=== PATIENT | female | born 1955 | race Caucasian/White ===

== ENCOUNTER 2016-07-16 21:22 | Observation (INO) | payer BC ==
[~2016-07-16 21:22] MED LIST: ESTR0.5T9 PO; FESO4 PO; FEXO180 PO; LORTA5 PO; OMPR20CCR PO; PRED10 PO; SIMV5TAB3 PO
[2016-07-16 21:24] VITALS: BP 132/68; PULSE 85; RESP 20; TEMP 98.3; O2SAT 97
--- NOTE | 2016-07-16 21:37 | PD ---
HPI Chief Complaint: Chest Pain Time Seen by Provider: 21:34 Travel History International Travel<30 days: No Contact w/Intl Traveler<30days: No Traveled to known affect area: No History of Present Illness HPI This is a 60-year-old female who has a history of microscopic polyangiitis who presents to the emergency department having been walking up her stairs when she started to have severe pain in the epigastric region, constant, bringing her to her knees. Her was there and says that she got flushed and diaphoretic. She says she felt short of breath. The chest pain lasted for about 20 minutes at its maximum and then another 20 minutes it was more mild. EMS arrived and administered 162 of aspirin. With EMS her symptoms had subsided. She's never had chest pain like this before. Her last stress test was in February and she was told it might be abnormal but they chose not to do a catheterization or any other intervention. Her billboard poster is in [place]. She is not currently on any medication for her microscopic polyangiitis but in the past she's been on prednisone. She does have a history of hyperlipidemia. She has had a cholecystectomy. PFSH Past Medical History Cancer: No High Cholesterol: Yes Diminished Hearing: No Endocrine: No Genitourinary: No Immune Disorder: No Implanted Vascular Access Dvce: Yes Musculoskeletal: No Neurologic: No Psychiatric: No Reproductive: No Respiratory: Yes (PNEUMONIA/BRONCHITIS) Menopausal: No Past Surgical History Oral Surgery: Yes (TONSILLECTOMY. MANDIBLE REPAIR) Pacemaker: No Tonsillectomy: Yes Other Surgery: Yes (LOWER MANDIBLE) Social History Alcohol Use: Yes (OCCAS) Tobacco Use: No Substance Use: No Allergies-Medications (Allergen,Severity, Reaction): Coded Allergies: No Known Allergies (Unverified , 07/16/16) Reported Meds & Prescriptions Reported Meds & Active Scripts Active Reported Lortab 5/325 Tab (Hydrocodone-Acetaminophen) 1 Tab Tab 1 Tab PO TIDPRN [Feso4] 325 Mg PO TID Prilosec 20 Mg Cap (Omeprazole) 20 Mg Capcr 20 Mg PO DAILY Deltasone 10 Mg Tab (Prednisone) 10 Mg Tab 80 Mg PO DAILY Simvastatin 5 Mg Tab 5 Mg PO DAILY Estrace (Estradiol) 0.5 Mg Tab 0.5 Mg PO WEEKLY TWICE A WEEK Chelsey (Fexofenadine HCl) 180 Mg Tab 180 Mg PO DAILY Review of Systems Except as stated in HPI: all other systems reviewed are Neg Physical Exam Narrative GENERAL:Well appearing, no acute distress SKIN: Warm and dry. HEAD: Atraumatic. Normocephalic. EYES: Pupils equal and round. No injection or drainage. ENT: Moist mucous membranes NECK: Trachea midline. CARDIOVASCULAR: Regular rate and rhythm. No murmur appreciated. RESPIRATORY: Clear to auscultation. Breath sounds equal bilaterally. GASTROINTESTINAL: Abdomen soft, tender to palpation in the epigastrium and right upper quadrant with no rebound or guarding. MUSCULOSKELETAL: No obvious deformities. NEUROLOGICAL: Awake and alert. No obvious cranial nerve deficits. Moving all extremities. PSYCHIATRIC: Appropriate mood and affect; insight and judgment normal. Data Data Last Documented VS Vital Signs Date Time Temp Pulse Resp B/P Pulse Ox O2 Delivery O2 Flow Rate FiO2 07/16/16 21:28 Room Air 07/16/16 21:24 98.3 85 20 132/68 97 Orders Electrocardiogram (07/16/16 21:34) Complete Blood Count With Diff (07/16/16 21:34) Comprehensive Metabolic Panel (07/16/16 21:34) Prothrombin Time / Inr (Pt) (07/16/16 21:34) Act Partial Throm Time (Ptt) (07/16/16 21:34) Troponin I (07/16/16 21:34) Chest, Single Ap (07/16/16 21:34) Ecg Monitoring (07/16/16 21:34) Bilateral Bp Monitoring (07/16/16 21:34) Iv Access Insert/Monitor (07/16/16 21:34) Oximetry (07/16/16 21:34) Oxygen Administration (07/16/16 21:34) Sodium Chloride 0.9% Flush (Ns Flush) (07/16/16 21:45) Labs Laboratory Tests Test 07/16/16 21:40 White Blood Count 9.0 TH/MM3 Red Blood Count 4.64 MIL/MM3 Hemoglobin 14.4 GM/DL Hematocrit 41.3 % Mean Corpuscular Volume 89.0 FL Mean Corpuscular Hemoglobin 30.9 PG Mean Corpuscular Hemoglobin 34.8 % Concent Red Cell Distribution Width 13.9 % Platelet Count 237 TH/MM3 Mean Platelet Volume 8.2 FL Neutrophils (%) (Auto) 69.4 % Lymphocytes (%) (Auto) 15.3 % Monocytes (%) (Auto) 4.8 % Eosinophils (%) (Auto) 9.8 % Basophils (%) (Auto) 0.7 % Neutrophils # (Auto) 6.2 TH/MM3 Lymphocytes # (Auto) 1.4 TH/MM3 Monocytes # (Auto) 0.4 TH/MM3 Eosinophils # (Auto) 0.9 TH/MM3 Basophils # (Auto) 0.1 TH/MM3 CBC Comment DIFF FINAL Differential Comment Prothrombin Time 10.5 SEC Prothromb Time International 1.0 RATIO Ratio Activated Partial 21.5 SEC Thromboplast Time Sodium Level 141 MEQ/L Potassium Level 4.7 MEQ/L Chloride Level 109 MEQ/L Carbon Dioxide Level 24.8 MEQ/L Anion Gap 7 MEQ/L Blood Urea Nitrogen 13 MG/DL Creatinine 1.12 MG/DL Estimat Glomerular Filtration 50 ML/MIN Rate Random Glucose 157 MG/DL Calcium Level 8.3 MG/DL Total Bilirubin 0.3 MG/DL Aspartate Amino Transf 57 U/L (AST/SGOT) Alanine Aminotransferase 30 U/L (ALT/SGPT) Alkaline Phosphatase 88 U/L Troponin I LESS THAN 0.02 NG/ML Total Protein 6.9 GM/DL Albumin 3.2 GM/DL [facility] Medical Decision Making Medical Screen Exam Complete: Yes Emergency Medical Condition: Yes Interpretation(s) Afebrile, no tachycardia, normotensive EKG: Normal sinus rhythm with no ST changes. No leukocytosis Mild renal insufficiency with a GFR of 50 troponin is normal Last 24 hours Impressions Chest X-Ray 07/16/162133 Signed Impressions: Service Date/Time: June 21:57 - CONCLUSION: No acute disease Hank Ocasio MD Differential Diagnosis Acute coronary syndrome, pneumonia, pleural effusion, renal failure, cholecystitis, gastritis, peptic ulcer disease Narrative Course This is a 60-year-old female who presents to the emergency department with a discrete episode of epigastric discomfort associated with diaphoresis, nausea and shortness of breath. Her history is concerning for acute coronary syndrome. EKG is reassuring and initial troponin is negative. Patient does have a history of microscopic polyangiitis. Chest x-ray is reassuring as well as labs. She did have an abnormal stress test at home in [place]. It's unclear what the abnormality was. I think it's reasonable to place the patient in observation for serial cardiac enzymes and cardiology consultation. I considered a GI etiology of her symptoms and she may very well have gastritis or an ulcer which can be worked up further as an outpatient. She did have a cholecystectomy in the past. Diagnosis Primary Impression: Chest pain Qualified Code: R07.89 - Other chest pain Admitting Information Admitting Physician Requests: Observation Marleny Live MD Jul 16, 2016 21:37
[2016-07-16] MEDS ORDERED: SODIUM CHLORIDE 0.9% FLUSH 5 ML FLUSH IVF PRN ×2 (21:45→23:45)
[2016-07-16 22:00] VITALS: BP 122/70; PULSE 80; RESP 18; O2SAT 97
[2016-07-16 22:01] LABS: AUTOMATED NEUTROPHIL # 6.2 TH/MM3 (1.8-7.7); BASOPHIL # 0.1 TH/MM3 (0-0.2); BASOPHIL % 0.7 % (0.0-2.0); EOSINOPHIL # 0.9 TH/MM3 (0-0.4); EOSINOPHIL % 9.8 % (0.0-4.0); HEMATOCRIT 41.3 % (35.0-46.0); HEMO FLAGS DIFF FINAL; LYMPH % 15.3 % (9.0-44.0); LYMPHOCYTE # 1.4 TH/MM3 (1.0-4.8); MEAN CORPUSCULAR HEMOGLOBIN 30.9 PG (27.0-34.0); MEAN CORPUSCULAR HGB CONC 34.8 % (32.0-36.0); MONO % 4.8 % (0.0-8.0); NEUT % 69.4 % (16.0-70.0); PLATELET COUNT 237 TH/MM3 (150-450); RED BLOOD COUNT 4.64 MIL/MM3 (4.00-5.30); RED CELL DISTRIBUTION WIDTH 13.9 % (11.6-17.2)
[2016-07-16 22:14] LABS: APTT (PATIENT) 21.5 SEC (24.3-30.1); PROTHROMBIN TIME - PATIENT 10.5 SEC (9.8-11.6)
--- NOTE | 2016-07-16 22:15 | RADRPT ---
EXAM DATE/TIME: 07/16/2016 21:57 [facility] COMPARISON: CHEST SINGLE AP, March 28, 2012, 6:13. INDICATIONS : Chest pain. MEDICAL HISTORY : Hypertension. SURGICAL HISTORY : None. ENCOUNTER: Initial ACUITY: 1 day PAIN SCORE: 10/10 LOCATION: chest FINDINGS: There appears to be a suture line overlying the lateral right lower chest. There is no evidence of in filtrate or effusion. Cardiomediastinal contours are satisfactory. CONCLUSION: No acute disease Hank Ocasio MD on July 16, 2016 at 22:13 Board Certified Radiologist. This report was verified electronically.
[2016-07-16 22:27] LABS: ALKALINE PHOSPHATASE 88 U/L (45-117); ALT (GPT) 30 U/L (10-53); ANION GAP 7 MEQ/L (5-15); AST (GOT) 57 U/L (15-37); BICARBONATE 24.8 MEQ/L (21.0-32.0); BLOOD UREA NITROGEN 13 MG/DL (7-18); CHLORIDE 109 MEQ/L (98-107); GLOMERULAR FILTRATION RATE 50 ML/MIN (>89); SODIUM (NA) 141 MEQ/L (136-145); TOTAL BILIRUBIN ADULT 0.3 MG/DL (0.2-1.0)
[2016-07-16 22:40] LABS: POTASSIUM 4.7 MEQ/L (3.5-5.1)
[2016-07-16 23:00] VITALS: BP 115/59; PULSE 78; RESP 18; O2SAT 96
[2016-07-17] VITALS: BP 120/63; PULSE 69; RESP 18; O2SAT 96
[2016-07-17 03:37] VITALS: BP 117/66; PULSE 76; RESP 18; TEMP 98.2; O2SAT 91; O2SAT 96
--- NOTE | 2016-07-17 08:54 | TR ---
Date Performed: 07/17/2016 Time Performed: 08:12:22 DOCTOR: Delta Atkinson DRUG LIST: CLINICAL HISTORY: REASON FOR TEST: REASON FOR ENDING: OBSERVATION: CONCLUSION: ZURI PROTOCOL. DEVELOPED TIGHTNESS 3/10 IN SECOND STAGE. IMPROVED IN RECOVERY. 1/1 0 AT 2 MINUTES IN RECOVERY. PT WAS SOB. TIGHTNESS RESOLEVED 2 1/2 MINUTES INTO RECOVERY.Maximum HR= 135 % Max HR Achieved=84.0% Maximum CI=721/70 Total Exercise Time=3:50 COMMENTS: ST changes inferiorly consistent with ischemia
[2016-07-17] MEDS ORDERED: SODIUM CHLORIDE 0.9% FLUSH 5 ML FLUSH IVF SCH (09:00)
[2016-07-17] MEDS ORDERED: NITROGLYCERIN 2% OINT 1 GM PACKET TOPICAL SCH (09:15)
[2016-07-17] MEDS ORDERED: PANTOPRAZOLE SOD 40 MG DELAYED RELEASE TAB PO SCH (09:30)
[2016-07-17] MEDS ORDERED: METOPROLOL TARTRATE 25 MG TAB PO SCH (09:30)
[2016-07-17] MEDS ORDERED: SODIUM CHLOR 0.9% 1000 ML INJ 1,000 ML IV SCH (09:30)
[2016-07-17] MEDS ORDERED: ASPIRIN 325 MG TAB PO SCH (09:30)
[2016-07-17] MEDS ORDERED: PILL SPLITTER OTHER PRN (09:30)
--- NOTE | 2016-07-17 10:28 | MH ---
cc: LARRY HOWELL MD DATE OF ADMISSION: 07/16/2016 DATE OF 1955 CHIEF COMPLAINT Chest pain HISTORY OF PRESENT ILLNESS This is a 60-year-old female who presents to the ED with a complaint of discomfort in her chest. She states that she notes a severe discomfort in the center of her chest that has also produced diaphoresis and nausea. She called 9-1-1 and was given sublingual nitroglycerin which did help her symptoms. It lasted about 20-minute she believes. She then states that she has had this occasionally over the last few months. She states that if she walks upstairs or just walks to fast, she will get the discomfort, but if she stops what she is doing, it will go away within a few minutes. She states she had it evaluated in [place] where she resides most of the time and had a nuclear ETT that was apparently nonischemic. She denies any recent illnesses. Denies fevers or chills. The patient states she also has a history of microscopic polyangiitis, but does not believe the symptoms have recurred. PAST HISTORY 1. Hyperlipidemia 2. Microscopic polyangiitis. 3. Denies hypertension, diabetes and known CAD. FAMILY HISTORY Her mother had CAD. She had her first MD in her 60s and she also had a bypass. PAST SURGICAL HISTORY Tonsillectomy and mandibular repair. SOCIAL HISTORY The patient does not smoke or use illicit drugs. She has occasional alcohol. ALLERGIES NO KNOWN DRUG ALLERGIES. MEDICATIONS Include: 1. Simvastatin 5 mg daily 2. Estrace twice a week REVIEW OF SYSTEMS GENERAL: Denies fevers or chills. Denies recent illnesses. HEENT: Denies headache, earache, sore throat or difficulty swallowing. CARDIOVASCULAR: Describes the discomfort as mentioned above. There is diaphoresis. Denies sensation of heart beating rapidly or irregularly. No syncope. RESPIRATORY: She was short of breath. No inspirational chest discomfort. Denies coughing, wheezing or hemoptysis. GI: She was nauseous, but denies emesis. Denies abdominal pain. Denies diarrhea, constipation or blood in the stool. MUSCULOSKELETAL: Denies joint pain or edema. Denies calf pain or edema. NEUROVASCULAR: Denies headache or dizziness. ENDOCRINE: Denies polyuria or polydipsia. HEMATOLOGIC: Denies easy bruising. SKIN: Denies rash or itching. PHYSICAL EXAMINATION VITAL SIGNS: In the emergency department initially included a blood pressure of 132/68, heart rate is 85, respirations 20, pulse oximetry 97% on two liters nasal cannula and she was afebrile. Most recent vital signs include a blood pressure 117/66, heart 76, respirations 18, pulse oximetry 96% on room air and she was afebrile. GENERAL: The patient seen in the examination room in no apparent stress. She is very pleasant. She speaks in clear and complete sentences. HEENT: Head is atraumatic, normocephalic. NECK: Supple without lymphadenopathy and trachea is midline. No JVD or carotid bruits. CARDIOVASCULAR: Regular rate and rhythm without murmur, gallop or rub. RESPIRATORY: Lungs are clear to auscultation bilaterally. No wheezing, rales or rhonchi. There is no reproducible chest wall discomfort. No use of accessory muscles. GI: Abdomen is nontender. Bowel sounds normal. MUSCULOSKELETAL: The patient is moving upper and lower extremities freely. No joint tenderness or edema. No calf tenderness or Homans' sign. Strong pulses in the upper and lower extremity. NEUROVASCULAR: The patient is alert and oriented. Cranial nerves II-XII grossly intact. No focal deficits and speech is clear. SKIN: No rashes. Skin turgor is normal. LABORATORY DATA CBC is unremarkable. Coagulation studies unremarkable. A basic metabolic panel has a creatinine elevated mildly 1.12, GFR decreased at 50, glucose elevated somewhat at 137, otherwise essentially remarkable CMP. Serial cardiac enzymes normal x3. A single view chest x-ray read by radiologist as no acute disease. EKG's have sinus rhythm with nonspecific T-wave changes. ASSESSMENT AND PLAN 1. Unstable angina: The patient had some chest comfort as mentioned above. We attempted a Carlito protocol ETT. She became symptomatic and was found to have inferolateral ST-T changes with her symptoms. The patient's stress test was also reevaluated by Dr. Larry Howell and he also evaluated the patient. At this time, she will need heart catheterization. Dr. Finch spoke with Dr. Vega who will perform a heart catheterization on the patient this afternoon. We will resume her statins and start her on a beta-alan, put some nitro ointment on her chest and give aspirin. She will be n.p.o. and have IV fluids. 2. Hyperlipidemia: Continue her statin. 3. The patient has unstable at this time. She is agreeable to this plan. [facility], Dr. Cardona and Dr. Vega has been consulted for the cardiac cath. Dictated by TIFFANIE Oro MD LIVE Mcdowell/ISSA /9:48 AM /10:27 AM
[2016-07-17] MEDS ORDERED: PRAVASTATIN SOD 10 MG TAB PO SCH (11:00)
[2016-07-17 11:18] VITALS: PULSE 68
[2016-07-17 11:49] VITALS: BP 111/65; PULSE 64; RESP 20; TEMP 97.7; O2SAT 92
[2016-07-17] MEDS ORDERED: HEPARIN-NS/PF INJ 500 ML ONE (12:43)
[2016-07-17] MEDS ORDERED: MIDAZOLAM HCL 2 MG/2 ML VIAL ONE ×2 (12:52→13:29)
[2016-07-17] MEDS ORDERED: ONDANSETRON HCL 4 MG/2 ML VIAL ONE (13:18)
[2016-07-17] MEDS ORDERED: IOHEXOL 350 MG/ML 100 ML BTL (for Cath Lab) OTHER ONE (13:29)
[2016-07-17] MEDS ORDERED: SODIUM CHLOR 0.9% 1000 ML INJ 500 ML IV SCH (13:58)
[2016-07-17] MEDS ORDERED: ASPI325T PO (14:29)
[2016-07-17] MEDS ORDERED: PRAV10TA PO (14:31)
[2016-07-17] MEDS ORDERED: METO25TA3 PO (14:31)
--- NOTE | 2016-07-17 14:31 | HHI.DCPOC ---
Discharge Care Plan Goals to Promote Your Health * To prevent worsening of your condition and complications * To maintain your health at the optimal level Directions to Meet Your Goals Take your medications as prescribed Follow your dietary instruction Follow activity as directed Keep your appointments as scheduled Take your immunizations and boosters as scheduled If your symptoms worsen call your PCP, if no PCP go to Urgent Care Center or Emergency Room Smoking is Dangerous to Your Health. Avoid second hand smoke Call the 24-hour hour crisis hotline for domestic abuse at Ana Cardona MD Jul 17, 2016 14:31
--- NOTE | 2016-07-17 14:36 | HHI.PR ---
Addendum to Inpatient Note Addendum Reason: Additional Documentation Additional Information Patient had cardiac cath by Dr Quinn. Patient feels much better no stents placed has 20% lesion per cardiology. Patietn is cleared for DC by cardiology Dr Vega. Patient to follow up as OP with PCP and with Dr Vega. DC home in failry good condition Meds per meds reconciliation activity ad rylie as tolerated Diet healthy heart diet To follow up as OP with PCP and cardiology Ana Mtz MD Jul 17, 2016 14:36
--- NOTE | 2016-07-17 15:17 | EKG ---
Date Performed: 07/17/2016 Time Performed: 03:49:19 PTAGE: 60 years EKG: Sinus rhythm NONSPECIFIC T-WAVE ABNORMALITY BORDERLINE ECG PREVIOUS TRACING : 07/17/2016 00.38 Since previous tracing, no significant change noted DOCTOR: Delta Atkinson Interpretating Date/Time 07/17/2016 15:15:53
--- NOTE | 2016-07-17 15:18 | EKG ---
Date Performed: 07/17/2016 Time Performed: 00:38:47 PTAGE: 60 years EKG: Sinus rhythm LOW QRS VOLTAGE IN PRECORDIAL LEADS NONSPECIFIC T-WAVE ABNORMALITY BORDERLINE ECG PREVIOUS TRACING : 07/16/2016 21.28 Since previous tracing, no significant change noted DOCTOR: Delta Atkinson Interpretating Date/Time 07/17/2016 15:17:20
--- NOTE | 2016-07-17 15:19 | EKG ---
Date Performed: 07/16/2016 Time Performed: 21:28:52 PTAGE: 60 years EKG: Sinus rhythm NONSPECIFIC T-WAVE ABNORMALITY BORDERLINE ECG PREVIOUS TRACING : 03/21/2012 03.38 Since previous tracing, no significant change noted DOCTOR: Delta Atkinson Interpretating Date/Time 07/17/2016 15:18:29
[2016-07-17] MEDS ORDERED: MORPHINE SULFATE 4 MG/ML INJ ONE (15:20)
[2016-07-17 15:45] LABS: HDL CHOLESTEROL 46.6 MG/DL (40.0-60.0)
[2016-07-17] MEDS ORDERED: MORPHINE SULFATE 4 MG/ML INJ IV PUSH ONE (16:00)
[2016-07-17 16:35] LABS: HEMOGLOBIN A1a 1.5 %; HEMOGLOBIN A1b 0.9 %; HEMOGLOBIN Ao 84.2 %; HEMOGLOBIN LA1C 2.3 %; HEMOGLOBIN P3 3.9 %
--- NOTE | 2016-07-17 16:53 | MB ---
cc: MIQUEL FRAZIER MD DATE OF CONSULTATION 07/17/16 HISTORY OF PRESENT ILLNESS Mr. Read is a 64 year old white female who developed severe substernal chest discomfort associated with nausea and diaphoresis last night. She had relief with sublingual nitroglycerine. She had exercise treadmill test which was positive for ischemia. PAST MEDICAL HISTORY 1. Microscopic polyangiitis. 2. Dyslipidemia No history of hypertension, diabetes mellitus, coronary artery disease or cerebrovascular accident. MEDICATIONS 1. Simvastatin 2. Estrace SOCIAL HISTORY The patient does not smoke. She drinks alcohol occasionally. She is accompanied by her . FAMILY HISTORY Positive for heart disease in her mother. ALLERGIES None. REVIEW OF SYSTEMS Otherwise negative PHYSICAL EXAMINATION VITAL SIGNS: Blood pressure 111/55, pulse 64 and regular. HEENT: Negative, 2+ carotid upstrokes, no bruits. LUNGS: Clear. HEART: Regular with no murmurs, rubs or gallops ABDOMEN: Soft, no bruits. EXTREMITIES: Without edema, 2+ distal pulses. NEUROLOGIC: Grossly nonfocal. CARDIOLOGY STUDIES Electrocardiogram was reviewed and showed normal sinus rhythm, nonspecific T wave changes. LABORATORY DATA Hemoglobin 14.4, potassium 4.7, creatinine 1.1, troponin negative times three. AST 57, ALT 30. DIAGNOSES 1. Unstable angina, class III 2. Dyslipidemia 3. Microscopic polyangiitis 4. Positive exercise treadmill test. DISPOSITION Ms. Read will undergo cardiac catheterization and coronary intervention if necessary. The patient understands the risks and benefits and wishes to proceed. MD KYLE Fair/ /12:11 PM /4:44 PM OMA
[2016-07-18] MEDS ORDERED: ASPIRIN 81 MG CHEW TAB PO SCH (09:00)
[2016-07-18] MEDS ORDERED: PRAVASTATIN SOD 20 MG TAB PO SCH (09:00)
--- NOTE | 2016-07-22 20:35 | MA ---
cc: MIQUEL FRAZIER DATE 07/17/2016 INDICATION Unstable angina, class III angina, intermediate probability stress test. PROCEDURE PERFORMED Retrograde left heart catheterization with left ventriculography and selective coronary angiography. ACCESS SITE Right femoral artery. EQUIPMENT USED 5 Palauan pigtail catheter, 5 Palauan JL4 and AR modified coronary artery catheters. MEDICATIONS 1. Versed. 2. IV Fentanyl. CONTRAST Omnipaque 85 cc. COMPLICATIONS None. METHOD OF HEMOSTASIS Manual compression. RESULTS HEMODYNAMICS Heart rate 80 beats per minute. Left ventricular end-diastolic pressure 9 mmHg Left ventricle 130/9 Aorta 130/70/95 LEFT VENTRICULOGRAPHY Ejection fraction 60%. Wall motion normal. No mitral regurgitation. CORONARY ANGIOGRAPHY Left main coronary artery patent. Left anterior descending artery has 20% stenosis in the mid portion. D-1 is patent. Left circumflex artery patent. OM-1 patent. OM-2 patent. Right coronary artery is a dominant vessel which is patent. PDA is patent. PLV is patent. DIAGNOSES 1. Mild non-obstructive coronary artery disease. 2. Preserved left ventricular systolic function. DISPOSITION Ms. Read can be reassured about her cardiac status. Her study showed mild non-obstructive coronary artery disease. I recommend to continue modification of her cardiac risk factors. The patient can be discharged today. I will see her back for followup in our office after discharge. MD KYLE Fair/KK /1:55 PM /8:20 PM OMA
== END 2016-07-17 19:35 | disposition home or self-care (01) ==
LOC: NEPE 21:22 → NEDA 22:44 → NEPHCDU 07-17 01:50 → HCIS 07-17 15:24
PROVIDERS: ADMIT Hospitalist; ATTEND Hospitalist
DX: I25.110 Atherosclerotic heart disease of native coronary artery with unstable angina pectoris (principal); E78.5 Hyperlipidemia, unspecified; E78.00 Pure hypercholesterolemia, unspecified
CPT/HCPCS: 71010; 80053; 80061; 83036; 84484; 85025; 85610; 85730; 93005; 93017; 93458; 99285; C1769; C1893; G0378; J1644; J2250; J2270; J2405; J3010; J7030; Q9967